=== PATIENT | male | born 1980 | race Caucasian/White ===

== ENCOUNTER 2018-04-02 13:22 | Inpatient (IN) | payer OTHER ==
--- NOTE | 2018-04-02 13:39 | PDOC ---
History of Present Illness - General Chief Complaint: Hematuria Stated Complaint: BLOOD IN URINE Time Seen by Provider: 04/02/18 13:39 History Source: Patient Exam Limitations: No Limitations - History of Present Illness Initial Comments: 04/02/18 13:57 38 year old male with PMH quadraplegia, neurogenic bladder, urostomy, right calf stage 4 pressure ulcer, right foot plantar ulcer, chronic DVT, on Coumadin , has IVC filter presenting to ED for hematuria. He states he recently had a kidney ultrasound performed at revealed "changes in his left kidney indicative of a stone". Pt denies lightheadedness, dizziness, fever, vomiting. Pt states his Coumadin was stopped x3 days ago because of his hematuria. Pt is a resident at [facility]. Pt states he had a UTI recently, finished his last dose of Zosyn today. Pt states he had a bowel movement this morning. PCP - Dr. Carlos Wound care - Dr. Héctor Brewster Allergies - NKDA 04/02/18 14:37 Past History - Past Medical History Allergies/Adverse Reactions: Allergies Allergy/AdvReac Type Severity Reaction Status Date / Time No Known Drug Allergies Allergy Verified 04/02/18 13:51 Home Medications: Ambulatory Orders Acetaminophen [Pain Relief] 650 mg PO PRN 04/02/18 Albuterol 0.083% Nebulizer Leighann [Ventolin 0.083% Nebulizer Soln -] 1 amp NEB PRN 04/02/18 Ammonium Lactate Lotion [Lac-Hydrin 12% Lotion -] 1 applic TP ASDIR 04/02/18 Baclofen 10 mg PO TID 04/02/18 Calcitriol [Rocaltrol -] 0.25 mcg PO DAILY 04/02/18 Cholecalciferol (Vitamin D3) [Vitamin D] 2,000 unit PO DAILY 04/02/18 Diazepam [Valium] 5 mg PO BID 04/02/18 Ipratropium 0.02% Nebulizer [Atrovent] 1 neb NEB PRN 04/02/18 Loratadine [Claritin] 10 mg PO DAILY 04/02/18 Magnesium Hydroxide [Milk of Magnesia] 400 mg PO PRN 04/02/18 Melatonin 5 mg PO HS 04/02/18 Multivitamins [Tab-A-Vit -] 1 tab PO DAILY 04/02/18 Silver Sulfadiazine 1% Top Cr [Silvadene -] 1 applic TP BID 04/02/18 Sodium Bicarbonate 650 mg PO TID 04/02/18 Sodium Phosphate,Obion-Dibasic [Fleet Enema] 1 bottle RC PRN 04/02/18 Warfarin Sodium [Coumadin] 6.5 mg PO HS 04/02/18 Zafirlukast [Accolate] 20 mg PO BID 04/02/18 Anemia: No Asthma: No Cancer: No Cardiac Disorders: No (fluid electrolyte,vitamin deficiency) CVA: No COPD: No CHF: No Dementia: No Diabetes: No GI Disorders: Yes (costipation, gerd) Disorders: Yes (neurogenic bladder. ILEAL CONDUIT) HTN: No Hypercholesterolemia: No Liver Disease: No Seizures: No (spinal cord disease, muscle spasm,) Thyroid Disease: No - Surgical History Abdominal Surgery: Yes (ILEAL CONDUIT) Appendectomy: No Cardiac Surgery: No Cholecystectomy: No Lung Surgery: No Neurologic Surgery: No Orthopedic Surgery: No - Suicide/Smoking/Psychosocial Hx Smoking Status: No Smoking History: Former smoker Have you smoked in the past 12 months: No Number of Cigarettes Smoked Daily: 0 If you are a former smoker, when did you quit?: 2011 Hx Alcohol Use: No Drug/Substance Use Hx: No Substance Use Type: None Hx Substance Use Treatment: No Review of Systems - Review of Systems Able to Perform ROS?: Yes Comments:: 04/02/18 14:07 ROS limited due to pt's quadriplegia. General: denies fever, chills, night sweats, generalized weakness. HEENT: denies sore throat, rhinorrhea, ear pain. Heart: denies syncope, diaphoresis. Respiratory: denies shortness of breath, cough, sputum production, hematemesis. Abdomen: denies nausea, vomiting, diarrhea, constipation, blood in stool. : admits to hematuria. Neurological: denies headache, dizziness. Skin: admits to left third toe necrosis, right calf abcess, right foot abscess. *Physical Exam - Physical Exam Comments: 04/02/18 14:15 Appearance: obese. HEENT: head is normocephalic, atraumatic. EOMI. PERRLA. Neck: supple. Full ROM. Heart: regular rhythm. no murmurs, rubs or gallops. No pericardial friction rub. Lungs: clear to auscultation bilaterally. no crackles, rhonchi or wheezing. no stridor. Abdomen: soft, protuberant. normal bowel sounds. urostomy bag to RLQ, red urine in the collecting system, no surrounding erythema, no induration, no discharge. Extremities: left third toe necrotic at the distal phalange. Right foot and calf dressing applied. Neurological: Alert. Oriented x3. CN 2-12 grossly intact. Moves all four extremities. ED Treatment Course - LABORATORY CBC & Chemistry Diagram: 04/02/18 17:20 04/02/18 17:20 Medical Decision Making - Medical Decision Making 04/02/18 14:37 38 year old male with PMH quadriplegia, chronic DVT, urostomy presenting for hematuria x1 week. Pt recently had UTI, recieved last dose of IV Zosyn today. Initial Vital Signs Temp Pulse Resp BP Pulse Ox 97.7 F 78 20 130/104 98 04/02/18 13:35 04/02/18 13:35 04/02/18 13:35 04/02/18 13:35 04/02/18 13:35 Pending rectal temperature. Pending spiral CT abdomen. 04/02/18 15:40 Rectal Temperature 97.8 04/02/18 17:46 CT report - bilateral hydronephrosis without obstruction. moderate retention of fecal material in rectum. Ua - 2+ blood, 2+ LE, 2+ protein. Pending labs. Urology paged. ID paged. 04/02/18 17:49 Dr. Santillan spoke with ID, who advises to treat for yeast urinary tract infection, collect blood cultures and coags. Pending labs. Fluconazole ordered. 04/02/18 18:11 Pt will be admitted for UTI, hydronephrosis, neurogenic bladder, Hx of urostomy. Pending admission. 04/02/18 18:32 I spoke with the admitting team, who will accept the patient under Dr. Connelly's care. *DC/Admit/Observation/Transfer Diagnosis at time of Disposition: Urinary tract infection, Neurogenic bladder, History of urostomy, Hydronephrosis - Discharge Dispostion Condition at time of disposition: Stable Decision to Admit order: Yes - Referrals Referrals: ON STAFF,NOT [Primary Care Provider] - - Patient Instructions - Post Discharge Activity
[2018-04-02 13:55] VITALS: BMI 37.5
--- NOTE | 2018-04-02 14:29 | PDOC ---
Attending Attestation - HPI HPI: 04/02/18 17:14 The patient is a 38 year old male, with a significant PMH of who presents to the emergency department with chronic DVT, right foot plantar ulcer, right calf stage 4 pressure ulcer, neurogenic bladder, urostomy, and quadriplegia presenting to the ED complaining of hematuria and coumadin was stopped 3 days ago. The patient reports changes in his left kidney secondary to a possible stone based on a recent kidney ultrasound. 04/02/18 17:15 Documentation prepared by Isabel Gordon, acting as healthcare or medical for Satish Santillan MD. <Isabel Gordon - Last Filed: 04/02/18 17:14> - Resident Resident Name: Devika Castillo - ED Attending Attestation I have performed the following: I have examined & evaluated the patient, The case was reviewed & discussed with the resident, I agree w/resident's findings & plan, Exceptions are as noted - Physicial Exam PE: 04/02/18 16:34 Patient is awake and alert, morbidly obese, afebrile nc, atr cta sft, nd + hematuria in urostomy Flaccid quadriplegia; patient is insensate below the level of the clavicles. Patient is able to shrug her shoulders only. - Medical Decision Making 04/02/18 16:34 Patient is a morbidly obese 38-year-old male, with history of C4 quadriplegia, multiple DVTs on Coumadin who presents with gross hematuria. Patient is insensate below the levels of the clavicles. Patient has been treated with IV Zosyn at [facility] for suspected UTI. In the ER, patient is afebrile with gross hematuria present within the urostomy. I suspect nephrolithiasis. Will obtain CBC/CMP/UA/urine culture. Will obtain a spiral CT that and pelvis. Will reassess. <Satish Santillan - Last Filed: 04/02/18 17:22> - Medical Decision Making 04/02/18 17:52 Dr. Thakkar was paged and notified via phone service. <Leona Donovan - Last Filed: 04/02/18 17:52>
[2018-04-02 14:59] LABS: URINE APPEARANCE CLOUDY; URINE BILIRUBIN NEGATIVE (<2.0 mg/dL); URINE COLOR RED; URINE GLUCOSE (UA) NEGATIVE (NEGATIVE); URINE KETONE NEGATIVE (NEGATIVE); URINE NITRITE NEGATIVE (NEGATIVE); URINE UROBILINOGEN NEGATIVE mg/dL (0.2-1.0)
[2018-04-02 15:02] LABS: URINE LEUK ESTERASE 2+ (NEGATIVE); URINE PROTEIN 2+ (NEGATIVE)
[2018-04-02 15:43] LABS: YEAST MANY
[2018-04-02 17:36] LABS: BASO % 0.5 % (0-2.0); EOS % 1.5 % (0-4.5); HEMATOCRIT 34.5 % (35.4-49); HEMOGLOBIN 11.3 GM/dL (11.7-16.9); LYMPH % 15.6 % (8-40); MCH 25.7 pg (25.7-33.7); MCHC 32.7 g/dl (32.0-35.9); MEAN CELL VOLUME 78.6 fl (80-96); MEAN PLT VOLUME 7.5 fl (7.5-11.1); MONO % 5.8 % (3.8-10.2); NEUT % 76.6 % (42.8-82.8); PLATELET COUNT 296 K/MM3 (134-434); RDW 18.6 % (11.9-15.9); WHITE BLOOD COUNT 8.2 K/mm3 (4.0-10.0)
[2018-04-02] MEDS ORDERED: FLUCONAZOLE 200 MG/NS 100 ML IVPB ONE (17:43)
[2018-04-02 18:04] LABS: ALBUMIN 2.4 g/dl (3.4-5.0); ANION GAP 13 (8-16); BILIRUBIN,TOTAL 0.4 mg/dL (0.2-1.0); BLOOD UREA NITROGEN 46 mg/dL (7-18); CALCIUM 8.6 mg/dL (8.5-10.1); CHLORIDE 105 mmol/L (98-107); CO2 23 mmol/L (21-32); CREATININE 1.1 mg/dL (0.7-1.3); GLUCOSE,RANDOM 125 mg/dL (74-106); POTASSIUM 4.2 mmol/L (3.5-5.1); SGOT/AST 48 U/L (15-37); SGPT/ALT 76 U/L (12-78); SODIUM 141 mmol/L (136-145); TOT PROT 7.6 g/dl (6.4-8.2)
[2018-04-02 18:05] LABS: ALK PHOS 138 U/L (45-117)
[2018-04-02 19:01] LABS: INR 1.7 (0.83-1.09); PROTHROMBIN TIME (PATIENT) 19.2 SEC (9.7-13.0)
[2018-04-02 21:38] LABS: ANISOCYTOSIS 1+; MACROCYTOSIS 1+; PLATELET ESTIMATE ADEQUATE
--- NOTE | 2018-04-02 23:38 | HP ---
CHIEF COMPLAINT: PCP: HISTORY OF PRESENT ILLNESS: This is a 38 y/o man with PMH of: quadraplegia, neurogenic bladder, urostomy, right calf stage 4 pressure ulcer, right foot plantar ulcer, chronic DVT, on Coumadin, has IVC filter. Who presents to the ED for hematuria. He states he recently had a kidney ultrasound performed at revealed "changes in his left kidney indicative of a stone". Pt denies lightheadedness, dizziness, fever, vomiting. Pt states his Coumadin was stopped x3 days ago because of his hematuria. Pt is a resident at [facility]. Pt states he had a UTI recently, finished his last dose of Zosyn today. Pt states he had a bowel movement this morning. Patient denies fever, chills, cough, SOB, CP, N/V. PCP - Dr. Carlos Wound care - Dr. Héctor Brewster Allergies - NKDA 04/02/18 14:37 ER course was notable for: (1) UTI: +2 protein, +2 blood, +2 varinder esterase, 1453 WBC, 1122 RBC (2) Glucose 125 (3) Recent Travel: None PAST MEDICAL HISTORY: See HPI PAST SURGICAL HISTORY: See HPI Social History: Smoking: Former Alcohol: None Drugs: None Resides at [facility], fully dependent Family History: Non-contributory Allergies No Known Drug Allergies Allergy (Verified 04/02/18 13:51) HOME MEDICATIONS: Home Medications Medication Instructions Recorded Acetaminophen [Pain Relief] 650 mg PO PRN 04/02/18 Albuterol 0.083% Nebulizer Leighann 1 amp NEB PRN 04/02/18 [Ventolin 0.083% Nebulizer Soln -] Ammonium Lactate Lotion 1 applic TP ASDIR 04/02/18 [Lac-Hydrin 12% Lotion -] Baclofen 10 mg PO TID 04/02/18 Calcitriol [Rocaltrol -] 0.25 mcg PO DAILY 04/02/18 Cholecalciferol (Vitamin D3) 2,000 unit PO DAILY 04/02/18 [Vitamin D] Diazepam [Valium] 5 mg PO BID 04/02/18 Ipratropium 0.02% Nebulizer 1 neb NEB PRN 04/02/18 [Atrovent] Loratadine [Claritin] 10 mg PO DAILY 04/02/18 Magnesium Hydroxide [Milk of 400 mg PO PRN 04/02/18 Magnesia] Melatonin 5 mg PO HS 04/02/18 Multivitamins [Tab-A-Vit -] 1 tab PO DAILY 04/02/18 Silver Sulfadiazine 1% Top Cr 1 applic TP BID 04/02/18 [Silvadene -] Sodium Bicarbonate 650 mg PO TID 04/02/18 Sodium Phosphate,Willacy-Dibasic 1 bottle RC PRN 04/02/18 [Fleet Enema] Warfarin Sodium [Coumadin] 6.5 mg PO HS 04/02/18 Zafirlukast [Accolate] 20 mg PO BID 04/02/18 REVIEW OF SYSTEMS CONSTITUTIONAL: Absent: fever, chills, diaphoresis, generalized weakness, malaise, loss of appetite, weight change HEENT: Absent: rhinorrhea, nasal congestion, throat pain, throat swelling, difficulty swallowing, mouth swelling, ear pain, eye pain, visual changes CARDIOVASCULAR: Absent: chest pain, syncope, palpitations, irregular heart rate, lightheadedness , peripheral edema RESPIRATORY: Absent: cough, shortness of breath, dyspnea with exertion, orthopnea, wheezing, stridor, hemoptysis GASTROINTESTINAL: Absent: abdominal pain, abdominal distension, nausea, vomiting, diarrhea, constipation, melena, hematochezia GENITOURINARY: hematuria, Absent: dysuria, frequency, urgency, hesitancy, flank pain, genital pain MUSCULOSKELETAL: Absent: myalgia, arthralgia, joint swelling, back pain, neck pain SKIN: Absent: rash, itching, pallor HEMATOLOGIC/IMMUNOLOGIC: Absent: easy bleeding, easy bruising, lymphadenopathy, frequent infections ENDOCRINE: Absent: unexplained weight gain, unexplained weight loss, heat intolerance, cold intolerance NEUROLOGIC: Absent: headache, focal weakness or paresthesias, dizziness, unsteady gait, seizure, mental status changes, bladder or bowel incontinence PSYCHIATRIC: Absent: anxiety, depression, suicidal or homicidal ideation, hallucinations. PHYSICAL EXAMINATION Vital Signs - 24 hr 04/02/18 04/02/18 04/02/18 13:35 15:42 15:45 Temperature 97.7 F 97.8 F Pulse Rate 78 Pulse Rate [ Apical] Respiratory 20 Rate Blood Pressure 130/104 Blood Pressure [Right Arm] O2 Sat by Pulse 98 100 Oximetry (%) 04/02/18 04/02/18 18:00 20:55 Temperature 98.9 F Pulse Rate Pulse Rate [ 74 78 Apical] Respiratory 18 18 Rate Blood Pressure Blood Pressure 154/77 149/98 [Right Arm] O2 Sat by Pulse 100 100 Oximetry (%) GENERAL: Awake, alert, and fully oriented, in no acute distress. HEAD: Normal with no signs of trauma. EYES: Pupils equal, round and reactive to light, extraocular movements intact, sclera anicteric, conjunctiva clear. No lid lag. EARS, NOSE, THROAT: Ears normal, nares patent, oropharynx clear without exudates. Moist mucous membranes. NECK: Normal range of motion, supple without lymphadenopathy, JVD, or masses. LUNGS: Breath sounds equal, clear to auscultation bilaterally. No wheezes, and no crackles. No accessory muscle use. HEART: Regular rate and rhythm, normal S1 and S2 without murmur, rub or gallop. ABDOMEN: Obese, soft, nontender, not distended, normoactive bowel sounds, no guarding, no rebound, no masses. No hepatomegaly or splenomegaly. Ileostomy noted MUSCULOSKELETAL: Unable to assess secondary to Quadriplegia UPPER EXTREMITIES: 2+ pulses, warm, well-perfused. No cyanosis. No clubbing. No peripheral edema. LOWER EXTREMITIES: 2+ pulses, warm, well-perfused. No calf tenderness. +3 bilateral pitting L>R peripheral edema, chronic venous stasis. NEUROLOGICAL: Cranial nerves II-XII intact. Normal speech. Patient is non- ambulatory secondary to spinal injury C4 PSYCHIATRIC: Cooperative. Good eye contact. Appropriate mood and affect. SKIN: Warm, dry, normal turgor, normal capillary refill. venous stasis ulcers lower extremities Laboratory Results - last 24 hr 04/02/18 04/02/18 04/02/18 14:42 17:20 17:20 WBC 8.2 RBC 4.40 Hgb 11.3 L Hct 34.5 L MCV 78.6 L MCH 25.7 MCHC 32.7 RDW 18.6 H Plt Count 296 D MPV 7.5 D Absolute Neuts (auto) 6.3 Neutrophils % 76.6 Neutrophils % (Manual) 80.0 Lymphocytes % 15.6 Lymphocytes % (Manual) 15.0 Monocytes % 5.8 Monocytes % (Manual) 4 Eosinophils % 1.5 Eosinophils % (Manual) 1.0 Basophils % 0.5 D Nucleated RBC % 0 Platelet Estimate Adequate Platelet Comment No clumping noted Anisocytosis 1+ Macrocytosis 1+ PT with INR INR Sodium 141 Potassium 4.2 Chloride 105 Carbon Dioxide 23 Anion Gap 13 BUN 46 H Creatinine 1.1 Creat Clearance w eGFR > 60 Random Glucose 125 H D Calcium 8.6 Total Bilirubin 0.4 AST 48 H D ALT 76 D Alkaline Phosphatase 138 H Total Protein 7.6 Albumin 2.4 L Urine Color Red Urine Appearance Cloudy Urine pH 7.0 Ur Specific [place] 1.010 Urine Protein 2+ H Urine Glucose (UA) Negative Urine Ketones Negative Urine Blood 2+ H Urine Nitrite Negative Urine Bilirubin Negative Urine Urobilinogen Negative Ur Leukocyte Esterase 2+ H Urine WBC (Auto) 1453 Urine RBC (Auto) 1122 Urine Yeast Many 04/02/18 18:05 WBC RBC Hgb Hct MCV MCH MCHC RDW Plt Count MPV Absolute Neuts (auto) Neutrophils % Neutrophils % (Manual) Lymphocytes % Lymphocytes % (Manual) Monocytes % Monocytes % (Manual) Eosinophils % Eosinophils % (Manual) Basophils % Nucleated RBC % Platelet Estimate Platelet Comment Anisocytosis Macrocytosis PT with INR 19.20 H INR 1.70 H Sodium Potassium Chloride Carbon Dioxide Anion Gap BUN Creatinine Creat Clearance w eGFR Random Glucose Calcium Total Bilirubin AST ALT Alkaline Phosphatase Total Protein Albumin Urine Color Urine Appearance Urine pH Ur Specific [place] Urine Protein Urine Glucose (UA) Urine Ketones Urine Blood Urine Nitrite Urine Bilirubin Urine Urobilinogen Ur Leukocyte Esterase Urine WBC (Auto) Urine RBC (Auto) Urine Yeast Radiology Reports: CTAP- Marked limited study with bilateral hydronephrosis without obvious obstruction. Clinical correlation is advised ASSESSMENT/PLAN: This is a 38 y/o man Admitted for Hematuria, UTI for further evaluation of their emergent condition. Plan: Will admit to M/S for Hematuria, UTI UA- +2 protein, +2 varinder esterase, 1453 wBCs, 1122 RBCs Urine culture pending Started on Fluconazole for UTI w/yeast Appreciate ID consult Appreciate Urology consult Continue home meds Monitor CBC, BMP Monitor vitals Functional Quadriplegia- secondary to C4 spinal injury, Requires total care, Turn Q2h, Nemo Lift as needed, Heel protectors, Fall Precautions FEN- PO fluids as tolerated, Replete lytes prn, Regular Diet DVT ppx- SCDs, No AC secondary to Hematuria Code Status: Full Code Dispo: Requires Inpatient Care Problem List - Problem (1) Hematuria Code(s): R31.9 - HEMATURIA, UNSPECIFIED (2) Urinary tract infection Code(s): N39.0 - URINARY TRACT INFECTION, SITE NOT SPECIFIED (3) Hydronephrosis Code(s): N13.30 - UNSPECIFIED HYDRONEPHROSIS (4) Neurogenic bladder Code(s): N31.9 - NEUROMUSCULAR DYSFUNCTION OF BLADDER, UNSPECIFIED (5) History of urostomy Code(s): Z98.890 - OTHER SPECIFIED POSTPROCEDURAL STATES (6) Quadriplegia Code(s): G82.50 - QUADRIPLEGIA, UNSPECIFIED Visit type - Emergency Visit Emergency Visit: Yes ED Registration Date: 04/02/18 Care time: The patient presented to the Emergency Department on the above date and was hospitalized for further evaluation of their emergent condition. - New Patient This patient is new to me today: Yes Date on this admission: 04/02/18 - Critical Care Critical Care patient: No Hospitalist Screening - Colonoscopy Questionnaire Colonoscopy Questionnaire: Colonoscopy Questionnaire - Patient: 50 - 75 years old and never had a screening colonoscopy: Unknown History of colon or rectal polyps, or CA: Unknown History of IBD, Crohn's disease or UC: Unknown History of abdominal radiation therapy as a child: Unknown - Relative: 1 with colon or rectal CA, or polyps at age 60 or younger: Unknown Colon or rectal CA diagnosed at age 45 or younger: Unknown
[2018-04-02] MEDS ORDERED: LACTOBACILLUS ACIDOPHILUS 1 TABLET PO ONE (23:45)
[2018-04-03] MEDS ORDERED: IPRATROPIUM BR 0.02% 0.5 MG/2.5 ML VIAL.NEB. NEB SCH (05:15)
[2018-04-03] MEDS ORDERED: ALBUTEROL SO4 0.083% IH SOL 2.5 MG/3 ML VIAL.NEB. NEB SCH (05:15)
[2018-04-03] MEDS ORDERED: IPRATROPIUM BR 0.02% 0.5 MG/2.5 ML VIAL.NEB. NEB PRN (05:35)
[2018-04-03] MEDS ORDERED: ALBUTEROL SO4 0.083% IH SOL 2.5 MG/3 ML VIAL.NEB. NEB PRN (05:35)
[2018-04-03] MEDS: ACETAMINOPHEN 325 MG TABLET (FP) PO PRN (06:16)
[2018-04-03] MEDS: SODIUM BICARBONATE 650 MG TABLET PO SCH ×3 (06:19→22:22)
[2018-04-03 07:23] LABS: BASO % 0.5 % (0-2.0); EOS % 1.4 % (0-4.5); HEMATOCRIT 32.3 % (35.4-49); HEMOGLOBIN 10.7 GM/dL (11.7-16.9); LYMPH % 15.2 % (8-40); MCHC 33.2 g/dl (32.0-35.9); MEAN CELL VOLUME 78.2 fl (80-96); MEAN PLT VOLUME 7.2 fl (7.5-11.1); MONO % 6.1 % (3.8-10.2); NEUT % 76.8 % (42.8-82.8); PLATELET COUNT 299 K/MM3 (134-434); RBC 4.13 M/mm3 (4.00-5.60); RDW 18.5 % (11.9-15.9)
[2018-04-03 08:37] LABS: CHLORIDE 105 mmol/L (98-107); POTASSIUM 4.3 mmol/L (3.5-5.1); SODIUM 139 mmol/L (136-145)
[2018-04-03 08:42] LABS: ANION GAP 11 (8-16); BLOOD UREA NITROGEN 47 mg/dL (7-18); CALCIUM 8.5 mg/dL (8.5-10.1); CO2 23 mmol/L (21-32); CREATININE 1.1 mg/dL (0.7-1.3); GLUCOSE,RANDOM 132 mg/dL (74-106)
[2018-04-03] MEDS ORDERED: FLUCONAZOLE 200 MG/NS 100 ML IVPB SCH (10:00)
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
[2018-04-03] MEDS: CALCITRIOL 0.25 MCG CAPSULE (FP) PO SCH (10:18)
[2018-04-03] MEDS: LACTOBACILLUS ACIDOPHILUS 1 TABLET PO SCH (10:18)
[2018-04-03] MEDS: LORATADINE 10 MG TABLET PO SCH (10:18)
[2018-04-03] MEDS: MULTIVITAMINS (DAILY MVI) TABLET (FP) PO SCH (10:19)
[2018-04-03] MEDS ORDERED: diazePAM 5 MG TABLET ONE (10:21)
[2018-04-03] MEDS: diazePAM 5 MG TABLET PO SCH ×2 (10:22→22:22)
--- NOTE | 2018-04-03 16:13 | PN ---
Progress Note (short form) - Note Progress Note: ID consult dictated imp/reccd 38 yo man quadraplegic admitted with gross hematuria already treated for 6 days with iv zosyn at pr, prior to that with po antibiotics has had gross heamaturia at [place] so coumadin was d/jeo alert no fevers wbc is normal plan to observe off antibiotics for now f/u cultures await urology consult will d/c diflucan, no yeast growing in urine culture
[2018-04-03] MEDS: SILVER SULFADIAZINE 1% TOP CREAM 400 GM JAR TP SCH ×2 (18:31→22:23)
[2018-04-03] MEDS ORDERED: MELATONIN 5 MG TABLETS PO ONE (22:15)
[2018-04-03] MEDS: MELATONIN 5 MG TABLETS PO SCH (22:21)
[2018-04-03] MEDS: MONTELUKAST NA 10 MG TABLET PO SCH (22:23)
[2018-04-04] MEDS: SODIUM BICARBONATE 650 MG TABLET PO SCH ×3 (05:27→22:51)
[2018-04-04 07:31] LABS: BASO % 0.4 % (0-2.0); EOS % 1.9 % (0-4.5); HEMATOCRIT 33.3 % (35.4-49); MCH 26.2 pg (25.7-33.7); MCHC 33.1 g/dl (32.0-35.9); MEAN CELL VOLUME 79.2 fl (80-96); MEAN PLT VOLUME 7.5 fl (7.5-11.1); MONO % 7.3 % (3.8-10.2); NEUT % 69.4 % (42.8-82.8); PLATELET COUNT 291 K/MM3 (134-434); RBC 4.21 M/mm3 (4.00-5.60); RDW 19.1 % (11.9-15.9); WHITE BLOOD COUNT 7.4 K/mm3 (4.0-10.0)
[2018-04-04 07:33] LABS: INR 1.39 (0.83-1.09); PROTHROMBIN TIME (PATIENT) 15.7 SEC (9.7-13.0)
[2018-04-04 08:21] LABS: CHLORIDE 105 mmol/L (98-107); POTASSIUM 4.5 mmol/L (3.5-5.1); SODIUM 139 mmol/L (136-145)
[2018-04-04 08:35] LABS: ALBUMIN 2.4 g/dl (3.4-5.0); ALK PHOS 135 U/L (45-117); ANION GAP 13 (8-16); BILIRUBIN,TOTAL 0.6 mg/dL (0.2-1.0); BLOOD UREA NITROGEN 42 mg/dL (7-18); CALCIUM 8.8 mg/dL (8.5-10.1); CO2 21 mmol/L (21-32); CREATININE 0.8 mg/dL (0.7-1.3); GLUCOSE,RANDOM 116 mg/dL (74-106); SGOT/AST 43 U/L (15-37); SGPT/ALT 73 U/L (12-78); TOT PROT 7.5 g/dl (6.4-8.2)
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
--- NOTE | 2018-04-04 09:43 | PN ---
Progress Note (short form) - Note Progress Note: patient seen and examined. Chart reviewed. Comfortable. Denies pain. Positive for hematuria. ID consult noted and appreciated. Off antibiotics Vital Signs Temp 98.8 F 04/04/18 02:42 Pulse 93 H 04/04/18 02:42 Resp 20 04/04/18 02:42 BP 152/91 04/04/18 02:42 Pulse Ox 97 04/03/18 21:00 Intake & Output 04/03/18 04/03/18 04/04/18 11:59 23:59 11:59 Output Total 1600 1200 Balance -1600 -1200 Weight 325 lb Output: Urine 1600 1200 Ileoconduit 1600 1200 Other: Voiding Method Ileal Conduit (Right) Ileal Conduit (Right) Bowel Movement Yes # Bowel Movements 2 Height 6 ft 6 in Body Mass Index (BMI) 37.5 Weight Measurement [facility] Active Medications Acetaminophen (Tylenol -) 650 mg PO Q6H PRN PRN Reason: PAIN OR FEVER Last Admin: 04/03/18 06:16 Dose: 650 mg Albuterol Sulfate (Ventolin 0.083% Nebulizer Soln -) 1 amp NEB Q6H PRN PRN Reason: SHORT OF BREATH/WHEEZING Calcitriol (Rocaltrol -) 0.25 mcg PO DAILY [facility] Last Admin: 04/03/18 10:18 Dose: 0.25 mcg Diazepam (Valium -) 5 mg PO BID [facility] Last Admin: 04/03/18 22:22 Dose: 5 mg Ipratropium [place] (Atrovent 0.02% Nebulizer -) 1 amp NEB Q6H PRN PRN Reason: SHORT OF BREATH/WHEEZING Lactobacillus Acidophilus (Bacid -) 1 tab PO DAILY [facility] Last Admin: 04/03/18 10:18 Dose: 1 tab Loratadine (Claritin -) 10 mg PO DAILY [facility] Last Admin: 04/03/18 10:18 Dose: 10 mg Melatonin (Melatonin) 5 mg PO [facility] Last Admin: 04/03/18 22:21 Dose: Not Given Montelukast Sodium (Singulair -) 10 mg PO HS [facility] Last Admin: 04/03/18 22:23 Dose: 10 mg Multivitamins/Minerals/Vitamin C (Tab-A-Vit -) 1 tab PO DAILY [facility] Last Admin: 04/03/18 10:19 Dose: 1 tab Silver Sulfadiazine (Silvadene -) 1 applic TP BID [facility] Last Admin: 04/03/18 22:23 Dose: Not Given Sodium Bicarbonate (Sodium Bicarbonate -) 650 mg PO TID [facility] Last Admin: 04/04/18 05:27 Dose: 650 mg CBC, BMP 04/04/18 06:00 04/04/18 06:00 Microbiology 04/02/18 18:01 Blood Culture - Preliminary Blood - Peripheral Venous NO GROWTH OBTAINED AFTER 24 HOURS, INCUBATION TO CONTINUE FOR 4 DAYS. 04/02/18 18:01 Blood Culture - Preliminary Blood - Peripheral Venous NO GROWTH OBTAINED AFTER 24 HOURS, INCUBATION TO CONTINUE FOR 4 DAYS. 04/02/18 14:42 Urine Culture - Preliminary Urine - Urostomy Bag Non Lactose Fermenting Gnb Group D Strep Or Entero Coccus physical exam Constitutional: Yes: No Distress, Calm, Other (morbid obese) Cardiovascular: Yes: Regular Rate and Rhythm Respiratory: Yes: Diminished Gastrointestinal: Yes: Normal Bowel Sounds, Soft, Abdomen, Obese, Other ( urostomy). No: Tenderness Extremities: Yes: Other (multiple wounds on legs B/L) Edema: Yes Psychiatric: Yes: Alert, Oriented Problem List - Problems (1) Hematuria Code(s): R31.9 - HEMATURIA, UNSPECIFIED (2) History of urostomy Code(s): Z98.890 - OTHER SPECIFIED POSTPROCEDURAL STATES (3) Hydronephrosis Code(s): N13.30 - UNSPECIFIED HYDRONEPHROSIS (4) Neurogenic bladder Code(s): N31.9 - NEUROMUSCULAR DYSFUNCTION OF BLADDER, UNSPECIFIED (5) Quadriplegia Code(s): G82.50 - QUADRIPLEGIA, UNSPECIFIED (6) Urinary tract infection Code(s): N39.0 - URINARY TRACT INFECTION, SITE NOT SPECIFIED Assessment/Plan off antibiotics Continue present care monitor labs Urology consult pending Will follow discussed with nursing staff also
[2018-04-04] MEDS: LACTOBACILLUS ACIDOPHILUS 1 TABLET PO SCH (11:18)
[2018-04-04] MEDS: CALCITRIOL 0.25 MCG CAPSULE (FP) PO SCH (11:18)
[2018-04-04] MEDS: LORATADINE 10 MG TABLET PO SCH (11:20)
[2018-04-04] MEDS: diazePAM 5 MG TABLET PO SCH ×2 (11:20→22:51)
[2018-04-04] MEDS: MULTIVITAMINS (DAILY MVI) TABLET (FP) PO SCH (11:21)
[2018-04-04 11:44] LABS: ANISOCYTOSIS 1+; MACROCYTOSIS 0; PLATELET ESTIMATE NORMAL
[2018-04-04] MEDS: SILVER SULFADIAZINE 1% TOP CREAM 400 GM JAR TP SCH ×2 (18:52→22:52)
[2018-04-04] MEDS: MONTELUKAST NA 10 MG TABLET PO SCH (22:51)
[2018-04-04] MEDS ORDERED: MELATONIN 5 MG TABLETS PO ONE (23:52)
[2018-04-05] MEDS: MELATONIN 5 MG TABLETS PO SCH (00:04)
[2018-04-05] MEDS: ACETAMINOPHEN 325 MG TABLET (FP) PO PRN (00:08)
[2018-04-05] MEDS: SODIUM BICARBONATE 650 MG TABLET PO SCH ×2 (05:29→15:29)
[2018-04-05 08:03] LABS: ALBUMIN 2.5 g/dl (3.4-5.0); ANION GAP 9 (8-16); BLOOD UREA NITROGEN 41 mg/dL (7-18); CALCIUM 8.5 mg/dL (8.5-10.1); CHLORIDE 103 mmol/L (98-107); CO2 24 mmol/L (21-32); CREATININE 0.8 mg/dL (0.7-1.3); GLUCOSE,RANDOM 111 mg/dL (74-106); POTASSIUM 4.4 mmol/L (3.5-5.1); SGOT/AST 38 U/L (15-37); SGPT/ALT 68 U/L (12-78); SODIUM 136 mmol/L (136-145)
[2018-04-05 08:04] LABS: ALK PHOS 133 U/L (45-117); BILIRUBIN,TOTAL 0.5 mg/dL (0.2-1.0); TOT PROT 7.7 g/dl (6.4-8.2)
--- NOTE | 2018-04-05 10:51 | PN ---
Progress Note, Physician Chief Complaint: see dc summary - Current Medication List Current Medications: Active Medications Acetaminophen (Tylenol -) 650 mg PO Q6H PRN PRN Reason: PAIN OR FEVER Last Admin: 04/05/18 00:08 Dose: 650 mg Albuterol Sulfate (Ventolin 0.083% Nebulizer Soln -) 1 amp NEB Q6H PRN PRN Reason: SHORT OF BREATH/WHEEZING Calcitriol (Rocaltrol -) 0.25 mcg PO DAILY [facility] Last Admin: 04/04/18 11:18 Dose: 0.25 mcg Diazepam (Valium -) 5 mg PO BID [facility] Last Admin: 04/04/18 22:51 Dose: 5 mg Ipratropium [place] (Atrovent 0.02% Nebulizer -) 1 amp NEB Q6H PRN PRN Reason: SHORT OF BREATH/WHEEZING Lactobacillus Acidophilus (Bacid -) 1 tab PO DAILY [facility] Last Admin: 04/04/18 11:18 Dose: 1 tab Loratadine (Claritin -) 10 mg PO DAILY [facility] Last Admin: 04/04/18 11:20 Dose: 10 mg Melatonin (Melatonin) 5 mg PO [facility] Last Admin: 04/05/18 00:04 Dose: Not Given Montelukast Sodium (Singulair -) 10 mg PO HS [facility] Last Admin: 04/04/18 22:51 Dose: 10 mg Multivitamins/Minerals/Vitamin C (Tab-A-Vit -) 1 tab PO DAILY [facility] Last Admin: 04/04/18 11:21 Dose: 1 tab Silver Sulfadiazine (Silvadene -) 1 applic TP BID [facility] Last Admin: 04/04/18 22:52 Dose: 1 appful Sodium Bicarbonate (Sodium Bicarbonate -) 650 mg PO TID [facility] Last Admin: 04/05/18 05:29 Dose: 650 mg - Objective Vital Signs: Vital Signs Temperature 98.6 F 04/05/18 05:20 Pulse Rate 76 04/05/18 05:20 Respiratory Rate 20 04/05/18 05:20 Blood Pressure 140/100 04/05/18 05:20 O2 Sat by Pulse Oximetry (%) 97 04/04/18 21:00 Labs: CBC, BMP 04/04/18 06:00 04/05/18 06:00 INR, PTT INR 1.39 (0.83-1.09) H 04/04/18 06:00 Problem List - Problems (1) Hematuria Code(s): R31.9 - HEMATURIA, UNSPECIFIED (2) History of urostomy Code(s): Z98.890 - OTHER SPECIFIED POSTPROCEDURAL STATES (3) Hydronephrosis Code(s): N13.30 - UNSPECIFIED HYDRONEPHROSIS (4) Neurogenic bladder Code(s): N31.9 - NEUROMUSCULAR DYSFUNCTION OF BLADDER, UNSPECIFIED (5) Quadriplegia Code(s): G82.50 - QUADRIPLEGIA, UNSPECIFIED (6) Urinary tract infection Code(s): N39.0 - URINARY TRACT INFECTION, SITE NOT SPECIFIED
[2018-04-05] MEDS: LORATADINE 10 MG TABLET PO SCH (11:33)
[2018-04-05] MEDS: CALCITRIOL 0.25 MCG CAPSULE (FP) PO SCH (11:33)
[2018-04-05] MEDS: LACTOBACILLUS ACIDOPHILUS 1 TABLET PO SCH (11:33)
[2018-04-05] MEDS: MULTIVITAMINS (DAILY MVI) TABLET (FP) PO SCH (11:33)
[2018-04-05] MEDS: SILVER SULFADIAZINE 1% TOP CREAM 400 GM JAR TP SCH (11:33)
[2018-04-05] MEDS: diazePAM 5 MG TABLET PO SCH (11:33)
--- NOTE | 2018-04-05 12:43 | DS ---
Physical Examination Vital Signs: Vital Signs Temperature 98.6 F 04/05/18 05:20 Pulse Rate 76 04/05/18 05:20 Respiratory Rate 20 04/05/18 05:20 Blood Pressure 140/100 04/05/18 05:20 O2 Sat by Pulse Oximetry (%) 97 04/04/18 21:00 Constitutional: Yes: No Distress, Calm Cardiovascular: Yes: Regular Rate and Rhythm Respiratory: Yes: Diminished Gastrointestinal: Yes: Normal Bowel Sounds, Soft, Abdomen, Obese. No: Tenderness Edema: Yes Labs: CBC, BMP 04/04/18 06:00 04/05/18 06:00 Discharge Summary Reason For Visit: UTI\HYDRONEPHEPHROSIS Current Active Problems Hematuria (Acute) History of urostomy (Acute) Hydronephrosis (Acute) Neurogenic bladder (Acute) Quadriplegia (Acute) Urinary tract infection (Acute) Hospital Course: Pt admitted for hematuria Seen by ID and Urology Antibiotics discontinued As per - he may have varices and bleeding can be due to that along with coumadin Pt has been off coumadin here - has ivc filter As per - may restart coumadin later when urine clears up - if needed stable for to [place] Condition: Stable - Instructions Referrals: ON STAFF,NOT [Primary Care Provider] - Disposition: SNF FACILITY - Home Medications Comprehensive Discharge Medication List: Ambulatory Orders Acetaminophen [Pain Relief] 650 mg PO PRN 04/02/18 Albuterol 0.083% Nebulizer [place] [Ventolin 0.083% Nebulizer Soln -] 1 amp NEB PRN 04/02/18 Ammonium Lactate Lotion [Lac-Hydrin 12% Lotion -] 1 applic TP ASDIR 04/02/18 Baclofen 10 mg PO TID 04/02/18 Calcitriol [Rocaltrol -] 0.25 mcg PO DAILY 04/02/18 Cholecalciferol (Vitamin D3) [Vitamin D] 2,000 unit PO DAILY 04/02/18 Diazepam [Valium] 5 mg PO BID 04/02/18 Ipratropium 0.02% Nebulizer [Atrovent] 1 neb NEB PRN 04/02/18 Loratadine [Claritin] 10 mg PO DAILY 04/02/18 Magnesium Hydroxide [Milk of Magnesia] 400 mg PO PRN 04/02/18 Melatonin 5 mg PO HS 04/02/18 Multivitamins [Tab-A-Vit -] 1 tab PO DAILY 04/02/18 Silver Sulfadiazine 1% Top Cr [Silvadene -] 1 applic TP BID 04/02/18 Sodium Bicarbonate 650 mg PO TID 04/02/18 Sodium Phosphate,[place]-Dibasic [Fleet Enema] 1 bottle RC PRN 04/02/18 Warfarin Sodium [Coumadin] 6.5 mg PO HS 04/02/18 Zafirlukast [Accolate] 20 mg PO BID 04/02/18
[2018-04-05 14:45] VITALS: PULSE 78; TEMP 98.7
[2018-04-05 19:01] VITALS: BP 140/80
== END 2018-04-05 19:42 | DRG 463 ==
LOC: JER 13:22 → JERBED 18:10 → J6S 04-03 15:25 → J7W 04-03 18:27
PROVIDERS: ADMIT Internal Medicine; ATTEND Internal Medicine
DX: N13.6 Pyonephrosis (principal); N31.9 Neuromuscular dysfunction of bladder, unspecified; L89.894 Pressure ulcer of other site, stage 4; L89.893 Pressure ulcer of other site, stage 3; I82.591 Chronic embolism and thrombosis of other specified deep vein of right lower extremity; K21.9 Gastro-esophageal reflux disease without esophagitis; E66.01 Morbid (severe) obesity due to excess calories; Z98.890 Other specified postprocedural states; R53.2 Functional quadriplegia; R31.0 Gross hematuria; I87.2 Venous insufficiency (chronic) (peripheral); Z68.37 Body mass index [BMI] 37.0-37.9, adult; Z79.01 Long term (current) use of anticoagulants; Z87.891 Personal history of nicotine dependence
CPT/HCPCS: 36415; 74176; 80048; 80053; 81003; 81015; 85025; 85610; 87040; 87086; 87186; 99284-25